=== PATIENT | male | born 1980 ===

== ENCOUNTER 2017-05-30 11:30 | Emergency (ER) | payer OTHER ==
[2017-05-30] MEDS ORDERED: LIDOCAINE HCL 1% MDV SOL SC ONE (11:50)
[2017-05-30] MEDS ORDERED: LIDOCAINE HCL 1% MPF SOL ONE (11:51)
[2017-05-30] MEDS ORDERED: TDAP VACCINE 0.5 ML SUS IM ONE ×2 (12:01→12:03)
[2017-05-30] MEDS ORDERED: BACITRACIN 500 U/GM OIN TOP ONE ×2 (12:21→12:30)
[2017-05-30 13:02] VITALS: BP 149/102; PULSE 87; RESP 16; TEMP 98; O2SAT 100
== END 2017-05-30 12:40 | disposition home or self-care (01) ==
LOC: ED 11:30
DX: L03.011 Cellulitis of right finger (principal); E11.9 Type 2 diabetes mellitus without complications; Z79.4 Long term (current) use of insulin
CPT/HCPCS: 10060; 90471; 90715; 99282; J2001